=== PATIENT | female | born 1945 | race Caucasian/White ===

== ENCOUNTER 2019-04-14 14:43 | Emergency (ER) | payer MEDICARE, OTHER, SELFPAY ==
[2019-04-14 14:45] VITALS: BP 120/63; PULSE 53; RESP 20; TEMP 36.2; O2SAT 96; BMI 23.6
[2019-04-14 15:13] LABS: Bacteria Urine None Seen
[2019-04-14] MEDS: ONDANSETRON 4 MG/2 ML INJ IV ×2 (15:18→19:29)
[2019-04-14 15:21] LABS: Culture Indicated Urine Cult Not Indicated; Granular Casts Urine 5-10/LPF; RBC Urine 5-10/HPF (0-5/HPF); Squamous Epithelial Cell Urine 5-10 /HPF (0-5/HPF); WBC Urine 5-10/HPF (0-5/HPF)
[2019-04-14] MEDS: SODIUM CHLORIDE 0.9% 1,000 ML 1000 ML IV ×2 (15:44→17:32)
[2019-04-14 15:49] LABS: Add Manual Diff / Slide Review NO; Basophils Absolute Auto 0 /uL (0-100); Basophils Percent Auto 0.1 % (0-2); Eosinophils Absolute Auto 0 /uL (0-450); Hematocrit 45.3 % (36-46); Lymphocytes Absolute Auto 600 /uL (1100-4500); Lymphocytes Percent Auto 2.9 % (25-40); Mean Corpuscular HGB Conc 33.1 % (30-36); Mean Corpuscular Hemoglobin 30.6 PG (26-34); Mean Corpuscular Volume 92.4 fL (80-100); Monocytes Absolute Auto 1000 /uL (0-900); Neutrophils Absolute Auto 18300 /uL (1500-7000); Platelet Count 357 X10^3/uL (150-400); Red Blood Cell Count 4.91 X10^6/uL (4.0-5.2); Red Cell Distribution Width 12.9 % (11.6-14.8); White Blood Cell Count 19.9 X10^3/uL (4.5-11.0)
[2019-04-14 15:59] LABS: INR 1.1 (0.9-1.3); Prothrombin Time 12.1 SECONDS (10.1-12.7)
[2019-04-14 16:02] LABS: PTT Partial Thromboplastin Tim 28 SECONDS (26.4-36.2)
[2019-04-14 16:04] LABS: Alanine Aminotransferase 36 IU/L (9-52); Albumin 4.8 g/dL (3.5-5.0); Albumin Globulin Ratio 1.8 (1.0-2.8); Alkaline Phosphatase 100 U/L (38-126); Aspartate Aminotransferase 38 IU/L (14-36); Bilirubin Total 0.8 mg/dL (0.2-1.3); Blood Urea Nitrogen 16 mg/dL (7-17); Calcium 10.4 mg/dL (8.4-10.2); Carbon Dioxide 26 mmol/L (22-32); Chloride 100 mmol/L (98-107); Estimated Glomerular Filt Rate > 60.0 mL/min (>60); Globulin 2.7 g/dL (1.7-4.1); Glucose 159 mg/dL (80-110); HEMOLYSIS < 15 (0-50); Lipase 38 U/L (23-300); Potassium 3.4 mmol/L (3.4-5.1); Sodium 140 mmol/L (137-145); Total Protein 7.5 g/dL (6.3-8.2)
--- NOTE | 2019-04-14 16:20 | PC.NURSE ---
Rec'd report from Norma CANALES. pt moved into [facility] 7. resting on stretcher. IVF infusing. reports vomiting x 6 today, with 3 in ED, bile. Appears well. reports blood in stool. unable to give sample. awaiting rectal exam. Urine obtained and sent. NAD
--- NOTE | 2019-04-14 16:26 | DI.CT.S_ITS ---
PROCEDURE: CT ABDOMEN PELVIS W CON INDICATIONS: abd pain, elevated wbc TECHNIQUE: After the administration of intravenous contrast, 5 mm thick sections acquired from the diaphragm to the symphysis. 5 mm coronal and sagittal reformats were acquired. For radiation dose reduction, the following was used: automated exposure control, adjustment of mA and/or kV according to patient size. COMPARISON: None. FINDINGS: Image quality: Excellent. ABDOMEN: Lung bases: Lung bases are clear. Heart size is normal. Solid organs: Liver is normal in size and enhancement. Gallbladder . appears normal Biliary system is non dilated. Pancreas enhances normally. Spleen is normal in size and enhancement. No adrenal nodules. Kidneys demonstrate normal size and enhancement, without hydronephrosis. Peritoneum and bowel: Bowel loops demonstrate normal wall thickness and caliber. No free fluid or air. Nodes and vessels: No retroperitoneal or mesenteric adenopathy by size criteria. Aorta and inferior vena cava are normal in size. Miscellaneous: No ventral hernias. PELVIS: Genitourinary: Bladder wall thickness is normal. Miscellaneous: No inguinal hernias or adenopathy. A normal or abnormal appendix could not be found. No diverticulitis is identified. Bones: No suspicious bony lesions. No vertebral body compression fractures. IMPRESSION: Source of elevated white count is not seen. No intestinal obstruction or perforation is found. A normal or abnormal appendix could not be located but there are no secondary CT findings suggestive of appendicitis. Additionally, within the constraints of this examination, colitis is not found. Dictated by: Corey Taylor M.D. on 04/14/2019 at 17:16 Approved by: Corey Taylor M.D. on 04/14/2019 at 17:18
--- NOTE | 2019-04-14 17:22 | ED_ITS ---
HPI - Abdominal Pain <CLEMENT Sharma - Last Filed: 04/14/19 21:25> General Chief Complaint: Abdominal Pain Stated Complaint: DIARRHEA,CRAMPING Time Seen by Provider: 04/14/19 15:48 Source: patient Mode of arrival: Wheelchair Limitations: no limitations History of Present Illness HPI narrative: The patient is a 73-year-old female nonsmoker with history of supraventricular tachycardia with ablation who presents with a chief complaint of sudden onset of vomiting, abdominal cramping and diarrhea this morning. She states she ate normally last night, but ate a report food yesterday morning. She denies any fevers but complains of chills. She states that her diarrhea has become bloody, she has a history of constipation, internal and external hemorrhoids. She presents complaining of lightheadedness and dizziness. She denies any fevers, chest pain, shortness of breath. She denies any blood thinners other than 1 aspirin 3 times a week. Related Data Home Medications Medication Instructions Recorded Confirmed aspirin [Aspir-Low] 81 mg PO MOWEFR 04/14/19 04/14/19 calcium citrate 1 tab PO SUTUTHSA 04/14/19 04/14/19 calcium citrate 2 tab PO MOWEFR 04/14/19 04/14/19 flecainide 50 mg PO Q12H 04/14/19 04/14/19 lisinopril 10 mg PO QPM 04/14/19 04/14/19 multivitamin 1 tab PO DAILY 04/14/19 04/14/19 pravastatin 20 mg PO QPM 04/14/19 04/14/19 venlafaxine 37.5 mg PO DAILY 04/14/19 04/14/19 Previous Rx's Medication Instructions Recorded ondansetron 4 mg PO Q6H PRN #30 tab 04/14/19 Allergies Allergy/AdvReac Type Severity Reaction Status Date / Time No Known Drug Allergies Allergy Verified 04/14/19 14:58 Review of Systems <CLEMENT Sharma - Last Filed: 04/14/19 21:25> Review of Systems Narrative: GENERAL: Denies chills, fatigue, malaise, fever, sweats. HEENT: Denies sinus pain, ear pain, sore throat, difficulty swallowing, dizziness. RESPIRATORY: Denies dyspnea, cough, wheezing, hemoptysis, sputum. CARDIOVASCULAR: Denies chest pain, palpitations, orthopnea, edema, GASTROINTESTINAL: See HPI : Denies dysuria, frequency, incontinence, hematuria, urinary retention. MUSCULOSKELETAL: denies weakness, joint pain, or bony pain SKIN: Denies rash, skin lesions, or other NEUROLOGIC: Denies weakness, headache, numbness, change in speech, confusion, seizures, incoordination. PSYCHIATRIC: No concerning psychosocial issues. 12 point review of systems is negative except for those stated above Patient History <BARRETT Sharma- - Last Filed: 04/14/19 21:25> Social History Smoking Status: Never smoker Social History Smoking Status: Never smoker alcohol intake frequency: holidays/special occasions only Substance Use Type: does not use Exam <CLEMENT Sharma - Last Filed: 04/14/19 21:25> Narrative Exam Narrative: GENERAL: Thin female, the no acute distress HEAD: Atraumatic. Normocephalic. No temporal or scalp tenderness. EYES: Pupils equal round and reactive. Extraocular motions intact. No scleral icterus. No injection or drainage. ENT: Nose without bleeding, purulent drainage or septal hematoma. Throat without erythema, tonsillar hypertrophy or exudate. Uvula midline. Airway patent. Dry mucous membranes on initial exam. NECK: Trachea midline. No JVD or lymphadenopathy. Supple, nontender, no meningeal signs. CARDIOVASCULAR: Regular rate and rhythm without murmurs, gallops, or rubs. RESPIRATORY: Clear to auscultation. Breath sounds equal bilaterally. No wheezes, rales, or rhonchi. No cough. No increased respiratory effort. No accessory muscle use. GASTROINTESTINAL: Abdomen soft, diffuse tenderness, nondistended. No hepato- splenomegaly, or palpable masses. No guarding. Active bowel sounds all 4 quadrants. Negative Durbin sign. No pain at McBurney's point. EXTREMITIES: No clubbing, cyanosis, or edema. No joint tenderness, effusion, or edema noted. BACK: Nontender without deformity or crepitance. No flank tenderness. NEURO: AOx3. SKIN: No rash or erythema. : Rectal exam with Jeannine CANALES at bedside. No gross blood on rectal exam. External hemorrhoids visible. Initial Vital Signs Initial Vital Signs: Vital Signs Temperature 97.1 F L 04/14/19 14:45 Pulse Rate 53 L 04/14/19 14:45 Respiratory Rate 20 04/14/19 14:45 Blood Pressure 120/63 04/14/19 14:45 Pulse Oximetry 96 04/14/19 14:45 <Koko Mars DO - Last Filed: 04/20/19 07:01> Initial Vital Signs Initial Vital Signs: Vital Signs Temperature 97.1 F L 04/14/19 14:45 Pulse Rate 53 L 04/14/19 14:45 Respiratory Rate 20 04/14/19 14:45 Blood Pressure 120/63 04/14/19 14:45 Pulse Oximetry 96 04/14/19 14:45 Course <BARRETT Sharma-YVON - Last Filed: 04/14/19 21:25> Orders Ordered: Discontinued Medications Sodium Chloride (Normal Saline 0.9%) 1,000 mls @ 1,000 mls/hr IV BOLUS ONE Stop: 04/14/19 16:41 Last Infusion: 04/14/19 17:06 Dose: 0 mls/hr Documented by: Admin: 04/14/19 15:44 Dose: 1,000 mls/hr Documented by: LISHA Sodium Chloride (Normal Saline 0.9%) 1,000 mls @ 1,000 mls/hr IV BOLUS ONE Stop: 04/14/19 18:20 Last Infusion: 04/14/19 18:59 Dose: 0 mls/hr Documented by: Admin: 04/14/19 17:32 Dose: 1,000 mls/hr Documented by: KIA Ondansetron HCl (Zofran) 4 mg IV NOW ONE Stop: 04/14/19 15:00 Last Admin: 04/14/19 15:18 Dose: 4 mg Documented by: LISHA Ondansetron HCl (Zofran) 4 mg IV NOW ONE Stop: 04/14/19 19:22 Last Admin: 04/14/19 19:29 Dose: 4 mg Documented by: VIVIAN Vital Signs Vital signs: Vital Signs - 8 hr 04/14/19 14:45 04/14/19 19:32 Temperature 97.1 F L Pulse Rate 53 L 101 H Respiratory Rate 20 14 Blood Pressure 120/63 Blood Pressure [Left Arm] 147/76 H Pulse Oximetry 96 99 <DO Megan Ramos Last Filed: 04/20/19 07:01> Orders Ordered: Discontinued Medications Sodium Chloride (Normal Saline 0.9%) 1,000 mls @ 1,000 mls/hr IV BOLUS ONE Stop: 04/14/19 16:41 Last Infusion: 04/14/19 17:06 Dose: 0 mls/hr Documented by: Admin: 04/14/19 15:44 Dose: 1,000 mls/hr Documented by: LISHA Sodium Chloride (Normal Saline 0.9%) 1,000 mls @ 1,000 mls/hr IV BOLUS ONE Stop: 04/14/19 18:20 Last Infusion: 04/14/19 18:59 Dose: 0 mls/hr Documented by: Admin: 04/14/19 17:32 Dose: 1,000 mls/hr Documented by: KIA Ondansetron HCl (Zofran) 4 mg IV NOW ONE Stop: 04/14/19 15:00 Last Admin: 04/14/19 15:18 Dose: 4 mg Documented by: LISHA Ondansetron HCl (Zofran) 4 mg IV NOW ONE Stop: 04/14/19 19:22 Last Admin: 04/14/19 19:29 Dose: 4 mg Documented by: VIVIAN Vital Signs Vital signs: Vital Signs - 8 hr 04/14/19 14:45 04/14/19 19:32 Temperature 97.1 F L Pulse Rate 53 L 101 H Respiratory Rate 20 14 Blood Pressure 120/63 Blood Pressure [Left Arm] 147/76 H Pulse Oximetry 96 99 MDM - Abdominal Pain <CLEMENT Sharma - Last Filed: 04/14/19 21:25> Lab Data Result diagrams: 04/14/19 15:40 04/14/19 15:40 Labs: Lab Results 04/14/19 04/14/19 04/14/19 Range/Units 15:11 15:40 15:40 WBC 19.9 H (4.5-11.0) X10^3/uL RBC 4.91 (4.0-5.2) X10^6/uL Hgb 15.0 (12.0-16.0) g/dL Hct 45.3 (36-46) % MCV 92.4 (80-100) fL MCH 30.6 (26-34) PG MCHC 33.1 (30-36) % RDW 12.9 (11.6-14.8) % Plt Count 357 (150-400) X10^3/uL Neut % (Auto) 92.0 H (50-75) % Lymph % (Auto) 2.9 L (25-40) % [place] % (Auto) 5.0 (3-14) % Eos % (Auto) 0.0 L (2-4) % Baso % (Auto) 0.1 (0-2) % Neut # (Auto) 19041 H (7590-7445) /uL Lymph # (Auto) 600 L (3959-2240) /uL [place] # (Auto) 1000 H (0-900) /uL Eos # (Auto) 0 (0-450) /uL Baso # (Auto) 0 (0-100) /uL PT 12.1 (10.1-12.7) SECONDS INR 1.1 (0.9-1.3) APTT 28 (26.4-36.2) SECONDS Sodium (137-145) mmol/L Potassium (3.4-5.1) mmol/L Chloride (98-107) mmol/L Carbon Dioxide (22-32) mmol/L BUN (7-17) mg/dL Creatinine (0.52-1.04) mg/dL Estimated GFR (>60) mL/min BUN/Creatinine Ratio (6-22) Glucose (80-110) mg/dL Calcium (8.4-10.2) mg/dL Total Bilirubin (0.2-1.3) mg/dL AST (14-36) IU/L ALT (9-52) IU/L Alkaline Phosphatase (38-126) U/L Total Protein (6.3-8.2) g/dL Albumin (3.5-5.0) g/dL Globulin (1.7-4.1) g/dL Albumin/Globulin Ratio (1.0-2.8) Lipase (23-300) U/L Urine RBC 5-10/hpf H (0-5/HPF) Urine WBC 5-10/hpf H (0-5/HPF) Ur Squamous Epith Cells 5-10 /hpf H (0-5/HPF) Urine Bacteria None seen (None) Granular Casts 5-10/lpf (None) Ur Culture Indicated? Cult not indicated Stool Occult Blood (Negative) Stl C. cayetanensis PCR (Not Detect) Stool Rotavirus (PCR) (Not Detect) Stool Adenovirus (PCR) (Not Detect) Stool Astrovirus (PCR) (Not Detect) Stool Cryptosporidium PCR (Not Detect) Stl E.coli Shiga Tox PCR (Not Detect) St Sh/Enteroin Ecoli PCR (Not Detect) Stool E coli O157 PCR Stl Enterotoxigenic E PCR (Not Detect) Stool EPEC (PCR) (Not Detect) Stl E. histolytica PCR (Not Detect) Stool Giardia Lamblia PCR (Not Detect) Stl P. shigelloides PCR (Not Detect) St Y.enterocolitica PCR (Not Detect) Stool Vibrio (PCR) (Not Detect) Stl Vibrio cholerae PCR (Not Detect) Stl Enteroaggr Ecoli PCR (Not Detect) Stl Norovirus GI/GII PCR (Not Detect) Campylobacter (PCR) (Not Detect) C. difficile Tox (PCR) (Not Detect) Salmonella (PCR) (Not Detect) 04/14/19 04/14/19 04/14/19 Range/Units 15:40 17:21 17:21 WBC (4.5-11.0) X10^3/uL RBC (4.0-5.2) X10^6/uL Hgb (12.0-16.0) g/dL Hct (36-46) % MCV (80-100) fL MCH (26-34) PG MCHC (30-36) % RDW (11.6-14.8) % Plt Count (150-400) X10^3/uL Neut % (Auto) (50-75) % Lymph % (Auto) (25-40) % [place] % (Auto) (3-14) % Eos % (Auto) (2-4) % Baso % (Auto) (0-2) % Neut # (Auto) (0299-4318) /uL Lymph # (Auto) (8232-3001) /uL [place] # (Auto) (0-900) /uL Eos # (Auto) (0-450) /uL Baso # (Auto) (0-100) /uL PT (10.1-12.7) SECONDS INR (0.9-1.3) APTT (26.4-36.2) SECONDS Sodium 140 (137-145) mmol/L Potassium 3.4 (3.4-5.1) mmol/L Chloride 100 (98-107) mmol/L Carbon Dioxide 26 (22-32) mmol/L BUN 16 (7-17) mg/dL Creatinine 0.80 (0.52-1.04) mg/dL Estimated GFR > 60.0 (>60) mL/min BUN/Creatinine Ratio 20.0 (6-22) Glucose 159 H (80-110) mg/dL Calcium 10.4 H (8.4-10.2) mg/dL Total Bilirubin 0.8 (0.2-1.3) mg/dL AST 38 H (14-36) IU/L ALT 36 (9-52) IU/L Alkaline Phosphatase 100 (38-126) U/L Total Protein 7.5 (6.3-8.2) g/dL Albumin 4.8 (3.5-5.0) g/dL Globulin 2.7 (1.7-4.1) g/dL Albumin/Globulin Ratio 1.8 (1.0-2.8) Lipase 38 (23-300) U/L Urine RBC (0-5/HPF) Urine WBC (0-5/HPF) Ur Squamous Epith Cells (0-5/HPF) Urine Bacteria (None) Granular Casts (None) Ur Culture Indicated? Stool Occult Blood Positive H (Negative) Stl C. cayetanensis PCR Not detected (Not Detect) Stool Rotavirus (PCR) Not detected (Not Detect) Stool Adenovirus (PCR) Not detected (Not Detect) Stool Astrovirus (PCR) Not detected (Not Detect) Stool Cryptosporidium PCR Not detected (Not Detect) Stl E.coli Shiga Tox PCR Not detected (Not Detect) St Sh/Enteroin Ecoli PCR Not detected (Not Detect) Stool E coli O157 PCR Not Reportable Stl Enterotoxigenic E PCR Not detected (Not Detect) Stool EPEC (PCR) Not detected (Not Detect) Stl E. histolytica PCR Not detected (Not Detect) Stool Giardia Lamblia PCR Not detected (Not Detect) Stl P. shigelloides PCR Not detected (Not Detect) St Y.enterocolitica PCR Not detected (Not Detect) Stool Vibrio (PCR) Not detected (Not Detect) Stl Vibrio cholerae PCR Not detected (Not Detect) Stl Enteroaggr Ecoli PCR Not detected (Not Detect) Stl Norovirus GI/GII PCR Not detected (Not Detect) Campylobacter (PCR) Not detected (Not Detect) C. difficile Tox (PCR) Not detected (Not Detect) Salmonella (PCR) Not detected (Not Detect) Point of care testing: Point of Care Testing Stool Occult Blood Positive Urine Dip Bedside Urine Glucose Negative Bedside Urine Bilirubin ++ 2 Bedside Urine Ketone + 15 Urine Specific [place] 1.015 Bedside Urine Occult Blood + Bedside Urine pH 6.0 Bedside Urine Protein ++ 100 Bedside Urine Urobilinogen +/- 1mg Bedside Urine Nitrite - Negative Bedside Urine Leukocytes + [address] scan - abdomen: Radiologist's impression: [address] [address] [address] Scan Report Signed Patient: Flaquita Harper WMR#: [id number] : 6Acct:[id number] Age/Sex: 73 / FDate of Service: 04/14/19 Loc: ED Accession Number: [id number] Procedure: CT abdomen pelvis w con Ordering Provider: Shayna Coles- PROCEDURE: CT ABDOMEN PELVIS W CON INDICATIONS: abd pain, elevated wbc TECHNIQUE: After the administration of intravenous contrast, 5 mm thick sections acquired from the diaphragm to the symphysis. 5 mm coronal and sagittal reformats were acquired. For radiation dose reduction, the following was used: automated exposure control, adjustment of mA and/or kV according to patient size. COMPARISON: None. FINDINGS: Image quality: Excellent. ABDOMEN: Lung bases: Lung bases are clear. Heart size is normal. Solid organs: Liver is normal in size and enhancement. Gallbladder . appears normal Biliary system is non dilated. Pancreas enhances normally. Spleen is normal in size and enhancement. No adrenal nodules. Kidneys demonstrate normal size and enhancement, without hydronephrosis. Peritoneum and bowel: Bowel loops demonstrate normal wall thickness and ca liber. No free fluid or air. Nodes and vessels: No retroperitoneal or mesenteric adenopathy by size criteria. Aorta and inferior vena cava are normal in size. Miscellaneous: No ventral hernias. PELVIS: Genitourinary: Bladder wall thickness is normal. Miscellaneous: No inguinal hernias or adenopathy. A normal or abnormal appendix could not be found. No diverticulitis is identified. Bones: No suspicious bony lesions. No vertebral body compression fractures. IMPRESSION: Source of elevated white count is not seen. No intestinal obstruction or perforation is found. A normal or abnormal appendix could not be located but there are no secondary CT findings suggestive of appendicitis. Additionally, within the constraints of this examination, colitis is not found. Dictated by: Corey Taylor M.D. on 04/14/2019 at 17:16 Approved by: Corey Taylor M.D. on 04/14/2019 at 17:18 [facility] Narrative Medical decision making narrative: The patient is a 73-year-old female who presents with a chief complaint of sudden onset of nausea vomiting and diarrhea this morning. Her story is concerning for food poisoning/gastroenteritis etc. Urinalysis help rule out UTI. Given the patient's leukocytosis of 19, I did obtain an abdominal/pelvic CT with contrast to evaluate for any acute findings such as colitis, diverticulitis etc. Her CT came back negative. Additionally G I panel was sent, which had no acute findings. The patient felt much improved throughout her stay in the emergency department with 2 L of IV fluid, Zofran. She was able to tolerate ice, water, ashley mary ann and crackers. Even though she had some blood in her diarrhea, it is reassuring that her H/H is normal, she is not hypotensive, she is not tachycardic. I discussed the option of possible admission, possible scope. However the patient was able to tolerate food and fluids. She requested to be discharged so she could spend her vacation with her family and follow up with primary care provider when she gets back to [place]. I did give her prescription of Zofran. Encouraged at length follow up with PCP. I did discuss strict return precautions to the emergency department including fever with abdominal pain, inability keep down food or fluids. Patient has no questions or concerns and states understanding of return precautions as well as follow-up care. Emphasized that she had strict return precautions. <Koko Mars, DO - Last Filed: 04/20/19 07:01> Lab Data Labs: Lab Results 04/14/19 04/14/19 04/14/19 Range/Units 15:11 15:40 15:40 WBC 19.9 H (4.5-11.0) X10^3/uL RBC 4.91 (4.0-5.2) X10^6/uL Hgb 15.0 (12.0-16.0) g/dL Hct 45.3 (36-46) % MCV 92.4 (80-100) fL MCH 30.6 (26-34) PG MCHC 33.1 (30-36) % RDW 12.9 (11.6-14.8) % Plt Count 357 (150-400) X10^3/uL Neut % (Auto) 92.0 H (50-75) % Lymph % (Auto) 2.9 L (25-40) % [place] % (Auto) 5.0 (3-14) % Eos % (Auto) 0.0 L (2-4) % Baso % (Auto) 0.1 (0-2) % Neut # (Auto) 38635 H (4317-2678) /uL Lymph # (Auto) 600 L (3142-3473) /uL [place] # (Auto) 1000 H (0-900) /uL Eos # (Auto) 0 (0-450) /uL Baso # (Auto) 0 (0-100) /uL PT 12.1 (10.1-12.7) SECONDS INR 1.1 (0.9-1.3) APTT 28 (26.4-36.2) SECONDS Sodium (137-145) mmol/L Potassium (3.4-5.1) mmol/L Chloride (98-107) mmol/L Carbon Dioxide (22-32) mmol/L BUN (7-17) mg/dL Creatinine (0.52-1.04) mg/dL Estimated GFR (>60) mL/min BUN/Creatinine Ratio (6-22) Glucose (80-110) mg/dL Calcium (8.4-10.2) mg/dL Total Bilirubin (0.2-1.3) mg/dL AST (14-36) IU/L ALT (9-52) IU/L Alkaline Phosphatase (38-126) U/L Total Protein (6.3-8.2) g/dL Albumin (3.5-5.0) g/dL Globulin (1.7-4.1) g/dL Albumin/Globulin Ratio (1.0-2.8) Lipase (23-300) U/L Urine RBC 5-10/hpf H (0-5/HPF) Urine WBC 5-10/hpf H (0-5/HPF) Ur Squamous Epith Cells 5-10 /hpf H (0-5/HPF) Urine Bacteria None seen (None) Granular Casts 5-10/lpf (None) Ur Culture Indicated? Cult not indicated Stool Occult Blood (Negative) Stl C. cayetanensis PCR (Not Detect) Stool Rotavirus (PCR) (Not Detect) Stool Adenovirus (PCR) (Not Detect) Stool Astrovirus (PCR) (Not Detect) Stool Cryptosporidium PCR (Not Detect) Stl E.coli Shiga Tox PCR (Not Detect) St Sh/Enteroin Ecoli PCR (Not Detect) Stool E coli O157 PCR Stl Enterotoxigenic E PCR (Not Detect) Stool EPEC (PCR) (Not Detect) Stl E. histolytica PCR (Not Detect) Stool Giardia Lamblia PCR (Not Detect) Stl P. shigelloides PCR (Not Detect) St Y.enterocolitica PCR (Not Detect) Stool Vibrio (PCR) (Not Detect) Stl Vibrio cholerae PCR (Not Detect) Stl Enteroaggr Ecoli PCR (Not Detect) Stl Norovirus GI/GII PCR (Not Detect) Campylobacter (PCR) (Not Detect) C. difficile Tox (PCR) (Not Detect) Salmonella (PCR) (Not Detect) 04/14/19 04/14/19 04/14/19 Range/Units 15:40 17:21 17:21 WBC (4.5-11.0) X10^3/uL RBC (4.0-5.2) X10^6/uL Hgb (12.0-16.0) g/dL Hct (36-46) % MCV (80-100) fL MCH (26-34) PG MCHC (30-36) % RDW (11.6-14.8) % Plt Count (150-400) X10^3/uL Neut % (Auto) (50-75) % Lymph % (Auto) (25-40) % [place] % (Auto) (3-14) % Eos % (Auto) (2-4) % Baso % (Auto) (0-2) % Neut # (Auto) (8819-7146) /uL Lymph # (Auto) (2208-1500) /uL [place] # (Auto) (0-900) /uL Eos # (Auto) (0-450) /uL Baso # (Auto) (0-100) /uL PT (10.1-12.7) SECONDS INR (0.9-1.3) APTT (26.4-36.2) SECONDS Sodium 140 (137-145) mmol/L Potassium 3.4 (3.4-5.1) mmol/L Chloride 100 (98-107) mmol/L Carbon Dioxide 26 (22-32) mmol/L BUN 16 (7-17) mg/dL Creatinine 0.80 (0.52-1.04) mg/dL Estimated GFR > 60.0 (>60) mL/min BUN/Creatinine Ratio 20.0 (6-22) Glucose 159 H (80-110) mg/dL Calcium 10.4 H (8.4-10.2) mg/dL Total Bilirubin 0.8 (0.2-1.3) mg/dL AST 38 H (14-36) IU/L ALT 36 (9-52) IU/L Alkaline Phosphatase 100 (38-126) U/L Total Protein 7.5 (6.3-8.2) g/dL Albumin 4.8 (3.5-5.0) g/dL Globulin 2.7 (1.7-4.1) g/dL Albumin/Globulin Ratio 1.8 (1.0-2.8) Lipase 38 (23-300) U/L Urine RBC (0-5/HPF) Urine WBC (0-5/HPF) Ur Squamous Epith Cells (0-5/HPF) Urine Bacteria (None) Granular Casts (None) Ur Culture Indicated? Stool Occult Blood Positive H (Negative) Stl C. cayetanensis PCR Not detected (Not Detect) Stool Rotavirus (PCR) Not detected (Not Detect) Stool Adenovirus (PCR) Not detected (Not Detect) Stool Astrovirus (PCR) Not detected (Not Detect) Stool Cryptosporidium PCR Not detected (Not Detect) Stl E.coli Shiga Tox PCR Not detected (Not Detect) St Sh/Enteroin Ecoli PCR Not detected (Not Detect) Stool E coli O157 PCR Not Reportable Stl Enterotoxigenic E PCR Not detected (Not Detect) Stool EPEC (PCR) Not detected (Not Detect) Stl E. histolytica PCR Not detected (Not Detect) Stool Giardia Lamblia PCR Not detected (Not Detect) Stl P. shigelloides PCR Not detected (Not Detect) St Y.enterocolitica PCR Not detected (Not Detect) Stool Vibrio (PCR) Not detected (Not Detect) Stl Vibrio cholerae PCR Not detected (Not Detect) Stl Enteroaggr Ecoli PCR Not detected (Not Detect) Stl Norovirus GI/GII PCR Not detected (Not Detect) Campylobacter (PCR) Not detected (Not Detect) C. difficile Tox (PCR) Not detected (Not Detect) Salmonella (PCR) Not detected (Not Detect) Point of care testing: Point of Care Testing Stool Occult Blood Positive Urine Dip Bedside Urine Glucose Negative Bedside Urine Bilirubin ++ 2 Bedside Urine Ketone + 15 Urine Specific [place] 1.015 Bedside Urine Occult Blood + Bedside Urine pH 6.0 Bedside Urine Protein ++ 100 Bedside Urine Urobilinogen +/- 1mg Bedside Urine Nitrite - Negative Bedside Urine Leukocytes + 70 Esterase Discharge Plan Departure Patient Disposition: Home Clinical Impression: Gastroenteritis, Acute dehydration, Acute hemorrhoid Discharge Date/Time: 04/14/19 19:50 Instructions: DI for Dehydration -- Adult, DI for Hemorrhoids, DI for Viral Gastroenteritis -- Adult Activity Restrictions/Additional Instructions: Today we did lots of lab work and imaging. Your CT showed no colitis diverticulitis, small-bowel obstruction, obstruction, perforation or evidence of appendicitis. We have given you IV fluid and nausea medications. I have given you a prescription of Zofran for nausea. Please follow up with primary care provider and come back to emergency department for any acute concerns such as passing out, inability keep down fluids, concern of heart attack or stroke, severe GI bleeding or any acute concerns. I have given you a contact information if you need to find a primary care physician locally. The walk-in clinic also does emergency department follow-up as needed and able. Prescriptions: New ondansetron 4 mg tablet,disintegrating 4 mg PO Q6H PRN (Reason: nausea and vomiting) Qty: 30 RF: 0 No Action venlafaxine 37.5 mg tablet 37.5 mg PO DAILY RF: 0 lisinopril 10 mg tablet 10 mg PO QPM RF: 0 flecainide 50 mg tablet 50 mg PO Q12H RF: 0 pravastatin 20 mg tablet 20 mg PO QPM RF: 0 multivitamin Tablet 1 tab PO DAILY RF: 0 aspirin [Aspir-Low] 81 mg Tablet,Delayed Release (Dr/Ec) 81 mg PO MOWEFR RF: 0 calcium citrate 2 tab PO MOWEFR RF: 0 calcium citrate 1 tab PO SUTUTHSA RF: 0 [address]errals: [facility] [Outside] <Koko Mars DO - Last Filed: 04/20/19 07:01> Sign Out Provider Sign Out Attestation: I was available for consultation during this patient's emergency department visit. This chart is signed by myself for administrative purposes only. I did not have direct contact with this patient during this visit. They were seen independently by the APC.
[2019-04-14 18:51] LABS: Adenovirus F 40/41 Not Detected (Not Detect); Astrovirus Not Detected (Not Detect); Campylobacter Not Detected (Not Detect); Clostridium difficile toxin AB Not Detected (Not Detect); Cryptosporidium Not Detected (Not Detect); Cyclospora cayetanensis Not Detected (Not Detect); Entamoeba histolytica Not Detected (Not Detect); Enteroaggregative E.coli Not Detected (Not Detect); Enteropathogenic E.coli Not Detected (Not Detect); Enterotoxigenic E.coli It/st Not Detected (Not Detect); Giardia lamblia Not Detected (Not Detect); Norovirus GI/GII Not Detected (Not Detect); Plesiomonsa shigelloides Not Detected (Not Detect); Rotavirus A Not Detected (Not Detect); Salmonella Not Detected (Not Detect); Shiga-like toxin-prod E.coli Not Detected (Not Detect); Shigella/Enteroinvasive E.coli Not Detected (Not Detect); Vibrio Not Detected (Not Detect); Vibrio cholerae Not Detected (Not Detect); Yersinia enterocolitica Not Detected (Not Detect)
[2019-04-14 19:32] VITALS: BP 147/76; PULSE 101; RESP 14; O2SAT 99
[2019-04-18 17:23] LABS: Occult Blood 1 Positive (Negative)
[2019-04-18 18:38] LABS: Sample 1 Time 1725
== END 2019-04-14 19:50 | disposition home or self-care (01) ==
PROVIDERS: Emergency Medicine; Emergency Provider Nurse Practitioner Family
DX: K52.9 Noninfective gastroenteritis and colitis, unspecified (principal); E86.0 Dehydration; K64.9 Unspecified hemorrhoids
CPT/HCPCS: 36415; 74177; 80053; 81003; 81015; 82272; 83690; 85025; 85610; 85730; 87507; 96361; 96374; 96376; 99283; 99285; J2405; Q9967